=== PATIENT | male | born 1935 | race Caucasian/White ===

== ENCOUNTER 2017-09-08 06:18 | Emergency (ER) | payer MEDICARE, OTHER ==
[~2017-09-08] VITALS: Ht 162.6 cm; Wt 81.7 kg
[~2017-09-08 06:18] MED LIST: DONE10 PO
[2017-09-08 06:39] LABS: BASOPHILS ABSOLUTE AUTO 0.03 K/mm3 (0.00-0.23); BASOPHILS PERCENT AUTO 1 % (0-2); EOSINOPHILS ABSOLUTE AUTO 0.08 K/mm3 (0.00-0.68); EOSINOPHILS PERCENT AUTO 2 % (0-6); Hematocrit 42.2 % (37.0-53.0); Hemoglobin 14.5 g/dL (13.5-17.5); IMMATURE GRAN ABSOLUTE AUTO 0.01 K/mm3 (0.00-0.10); IMMATURE GRAN PERCENT AUTO 0 % (0-1); LYMPHOCYTES ABSOLUTE AUTO 1.74 K/mm3 (0.84-5.20); LYMPHOCYTES PERCENT AUTO 37 % (21-46); MONOCYTES ABSOLUTE AUTO 0.49 K/mm3 (0.16-1.47); MONOCYTES PERCENT AUTO 10 % (4-13); Mean Corpuscular HGB 31.5 pg (26.0-34.0); Mean Corpuscular HGB Conc 34.4 g/dL (31.5-36.5); Mean Corpuscular Volume 92 fL (80-100); Mean Platelet Volume 8.8 fL (9.1-12.4); NEUTROPHILS ABSOLUTE AUTO 2.34 K/mm3 (1.96-9.15); NEUTROPHILS PERCENT AUTO 50 % (41-73); Platelet Count 236 K/mm3 (150-400); RDW Coefficient Variation 12.3 % (11.7-14.2); Red Blood Cell Count 4.61 M/mm3 (4.30-5.90); White Blood Cell Count 4.69 K/mm3 (4.00-11.30)
[2017-09-08 06:57] LABS: Alanine Aminotransfer (ALT/SGP 13 U/L (12-78); Albumin, Blood 3.6 g/dL (3.4-5.0); Albumin/Globulin Ratio 0.9 (0.8-1.8); Alk Phos 68 U/L (50-136); Anion Gap 10 mmol/L (6-16); Aspartate Aminotrans (AST/SGOT 14 U/L (12-37); Blood Urea Nitrogen 14 mg/dL (8-24); Bun/Creatinine Ratio 15.4 (12.0-20.0); CO2, Blood 25 mmol/L (21-32); Chloride, Blood 105 mmol/L (98-108); Creatinine, Blood 0.91 mg/dL (0.60-1.20); Globulin, Blood 4.1 g/dL (2.2-4.0); Glomerular Filtration Rate >60 (60-); Glucose, Blood 99 mg/dL (70-99); Sodium, Blood 140 mmol/L (136-145); Total Protein, Blood 7.7 g/dL (6.4-8.2)
[2017-09-08 07:03] LABS: Source, Urine Voided
[2017-09-08 07:14] LABS: Bilirubin, Urine Neg (Neg); Blood, Urine Neg (Neg); Glucose Qualitative, Urine Neg (Neg); Ketones, Urine Neg (Neg); Leukocyte Esterase, Urine Neg (Neg); Nitrite, Urine Neg (Neg); Protein, Urine Neg (Neg); Urobilinogen, Urine NORM (Normal)
[2017-09-08 07:17] LABS: Appearance, Urine Clear (Clear); Color, Urine Yellow (P-Yellow)
== END 2017-09-08 08:13 | disposition home or self-care (01) ==
LOC: ER 06:18
PROVIDERS: Emergency Medicine
DX: R55 Syncope and collapse (principal); G30.9 Alzheimer's disease, unspecified; F02.80 Dementia in other diseases classified elsewhere, unspecified severity, without behavioral disturbance, psychotic disturbance, mood disturbance, and anxiety; Z79.899 Other long term (current) drug therapy; Z90.49 Acquired absence of other specified parts of digestive tract
CPT/HCPCS: 70450; 71046; 80053; 81003; 85025; 93005; 93010; 99284

== ENCOUNTER 2019-09-26 09:36 | Inpatient (IN) | payer MEDICARE, OTHER ==
[~2019-09-26] VITALS: Ht 165.1 cm; Wt 67.6 kg
[~2019-09-26 09:36] MED LIST changes: +ACET325 PO; +ALBU90OI INH; +CITA20 PO; +TRAZ100 PO
[2019-09-26] MEDS ORDERED: XANAX0.25 MG PO (09:54)
[2019-09-26 11:39] LABS: BASOPHILS PERCENT AUTO 0 % (0-2); EOSINOPHILS PERCENT AUTO 0 % (0-6); Hematocrit 41.9 % (37.0-53.0); IMMATURE GRAN ABSOLUTE AUTO 0.04 K/mm3 (0.00-0.10); IMMATURE GRAN PERCENT AUTO 1 % (0-1); LYMPHOCYTES ABSOLUTE AUTO 0.29 K/mm3 (0.84-5.20); LYMPHOCYTES PERCENT AUTO 4 % (21-46); MONOCYTES ABSOLUTE AUTO 0.36 K/mm3 (0.16-1.47); MONOCYTES PERCENT AUTO 4 % (4-13); Mean Corpuscular HGB 31.5 pg (26.0-34.0); Mean Corpuscular HGB Conc 33.4 g/dL (31.5-36.5); Mean Corpuscular Volume 94 fL (80-100); Mean Platelet Volume 9.2 fL (9.1-12.4); NEUTROPHILS ABSOLUTE AUTO 7.58 K/mm3 (1.96-9.15); NEUTROPHILS PERCENT AUTO 92 % (41-73); Platelet Count 296 K/mm3 (150-400); RDW Coefficient Variation 12.5 % (11.7-14.2); RDW Standard Deviation 43.1 fL (35.1-46.3); Red Blood Cell Count 4.45 M/mm3 (4.30-5.90); White Blood Cell Count 8.27 K/mm3 (4.00-11.30)
[2019-09-26 11:57] LABS: Alanine Aminotransfer (ALT/SGP 26 U/L (12-78); Albumin, Blood 3.5 g/dL (3.4-5.0); Albumin/Globulin Ratio 0.8 (0.8-1.8); Alk Phos 66 U/L (50-136); Anion Gap 4 mmol/L (6-16); Aspartate Aminotrans (AST/SGOT 23 U/L (12-37); Bilirubin, Total 0.6 mg/dL (0.1-1.0); Blood Urea Nitrogen 26 mg/dL (8-24); Bun/Creatinine Ratio 29.3 (12.0-20.0); CO2, Blood 27 mmol/L (21-32); Calcium, Blood 9.2 mg/dL (8.5-10.1); Chloride, Blood 105 mmol/L (98-108); Creatinine, Blood 0.89 mg/dL (0.60-1.20); Globulin, Blood 4.4 g/dL (2.2-4.0); Glomerular Filtration Rate >60 (60-); Glucose, Blood 198 mg/dL (70-99); Potassium, Blood 3.4 mmol/L (3.5-5.5); Sodium, Blood 136 mmol/L (136-145); Total Protein, Blood 7.9 g/dL (6.4-8.2)
[2019-09-26] MEDS ORDERED: ALPR.25 PO (17:19)
--- NOTE | 2019-09-26 19:38 | NUR ---
SHIFT SUMMARY 1705 RECEIVED PT TO 301 VIA GURNEY FROM ER. SLIDE TX TO BED. RECEIVED REPORT FROM LIDIA REYES. PT ADMITTED FOR SBO. NOT EATING OR DRINKING FOR PAST FEW DAYS. PER CARE GIVERS, PT'S LAST MEAL WAS FRIDAY NIGHT. LAST FLUID INTAKE WAS FRIDAY AM. PER CARE GIVERS FROM [facility], PT VOMITING AND HAD DIARRHEA, THINKING HE HAD THE FLU. PER REPORT, PT MOSTLY NONVERBAL AND BECOMES VERY AGITATED WITH TURNING OR CHANGING. PT INCONTINENT COMING TO . PT CLEANED AND CHANGED WITH 4P ASSIST D/T AGITATION AND DEMENTIA. PER REPORT, PT FOUND TO HAVE SBO. NGT TO BE PLACED. CAREGIVERS REPORTED THAT PT WOULD NOT BE CO-OP WITH THAT AND WOULD PULL IT OUT, ALONG WITH IV ACCESS. IV SITE INFUSING NS WITH KCL. SITE WRAPPED WITH COBAN AND NETTING PLACED TO CONCEAL SITE. DISCUSSED AGITATION ISSUE WITH DR MEDEIROS. NEW ORDERS RECEIVED. FAMILY AND CAREGIVERS UPDATED. PT TO BE TX TO SCU WHEN BED AVAILABLE. PT MEDICATED WITH 12.5 MCG OF FENTANYL PER CAREGIVERS, FOR JERKY MUSCLE MOVEMENTS AND GRIMACING. PT LYING HF, RESTING QUIETLY AT THIS TIME. REPORT GIVEN TO RORO REYES.
--- NOTE | 2019-09-26 20:55 | NUR ---
PT MOVED/EMESIS PT STARTED HAVING EMESIS @2029, ZOFRAN WAS GIVEN @2139 & PT MOVED FROM 301 TO 348 @2044. CALLED EULOGIO GOMEZ @2054 & INFORMED HER OF MOVE. GAVE REPORT TO DONIS VALLADARES RN.
[2019-09-27 02:24] LABS: Source, Urine Catheter
[2019-09-27 02:31] LABS: Appearance, Urine Clear (Clear); Bilirubin, Urine Neg (Neg); Blood, Urine 3+ (Neg); Color, Urine Amber (P-Yellow); Glucose Qualitative, Urine Neg (Neg); Ketones, Urine 1+ (Neg); Leukocyte Esterase, Urine 1+ (Neg); Nitrite, Urine Neg (Neg); Protein, Urine 3+ (Neg); Specific Gravity, Urine 1.025 (1.003-1.022); Urobilinogen, Urine NORM (Normal)
[2019-09-27 02:37] LABS: Bacteria Many /hpf; Mucus Heavy (0-Heavy); Red Blood Cells, Urine 0-2 /hpf (0-2); Squamous Epithelial Cells Not Seen /hpf (Few); White Blood Cells, Urine 25-50 /hpf (0-5)
[2019-09-27 05:27] LABS: BASOPHILS ABSOLUTE AUTO 0.02 K/mm3 (0.00-0.23); BASOPHILS PERCENT AUTO 0 % (0-2); EOSINOPHILS PERCENT AUTO 0 % (0-6); Hematocrit 38.4 % (37.0-53.0); Hemoglobin 12.5 g/dL (13.5-17.5); IMMATURE GRAN ABSOLUTE AUTO 0.05 K/mm3 (0.00-0.10); IMMATURE GRAN PERCENT AUTO 1 % (0-1); LYMPHOCYTES ABSOLUTE AUTO 0.72 K/mm3 (0.84-5.20); LYMPHOCYTES PERCENT AUTO 7 % (21-46); MONOCYTES ABSOLUTE AUTO 1.04 K/mm3 (0.16-1.47); MONOCYTES PERCENT AUTO 10 % (4-13); Mean Corpuscular HGB 31.8 pg (26.0-34.0); Mean Corpuscular HGB Conc 32.6 g/dL (31.5-36.5); NEUTROPHILS ABSOLUTE AUTO 9.13 K/mm3 (1.96-9.15); NEUTROPHILS PERCENT AUTO 83 % (41-73); Platelet Count 257 K/mm3 (150-400); RDW Coefficient Variation 12.9 % (11.7-14.2); RDW Standard Deviation 46.2 fL (35.1-46.3); Red Blood Cell Count 3.93 M/mm3 (4.30-5.90); White Blood Cell Count 10.96 K/mm3 (4.00-11.30)
[2019-09-27 05:28] LABS: Mean Corpuscular Volume 98 fL (80-100)
--- NOTE | 2019-09-27 05:28 | NUR ---
NOC SHIFT SUMMARY PT BROUGHT TO ROOM AROUND 2030 THIS NIGHT. HE WAS VERY AGITATED, HAD JUST VOMITED, WAS PULLING ON LINES, AND CONFUSED. TREATED WITH ATIVAN PER EMAR, PLACED IN RESTRAINTS FOR HIS OWN SAFETY AND TO PROTECT LINES. NG TUBE PLACED AND THUS FAR HAVE OBTAINED APPROX 2000ML OF GREEN COLORED BILE. PT APPEARED MORE COMFORTABLE AFTER STOMACH DECOMPRESSED. OBTAINED ORDER FOR GERARDO AND PLACED. PT IS ON CONT PULSE OXIMETRY SATTING MID 90'S ON 1LNC. NS WITH K RUNNING AT 150/HR. PT IS NPO. NEXT OF KIN EULOGIO CALLED TO CHECK UP ON PT STATUS I SPOKE WITH HER AND SHE RELATES SHE PLANS TO VISIT TODAY AFTER AROUND 1530. SURG CONSULT CALLED TO ANSWERING SERVICE. VSS. AT PRESENT PT APPEARS TO BE SLEEPING AND IN NO ACUTE DISTRESS. WILL CONTINUE TO MONITOR.
[2019-09-27 05:51] LABS: Magnesium, Blood 1.8 mg/dL (1.6-2.4)
[2019-09-27 06:00] LABS: Alanine Aminotransfer (ALT/SGP 17 U/L (12-78); Albumin, Blood 2.9 g/dL (3.4-5.0); Albumin/Globulin Ratio 0.8 (0.8-1.8); Alk Phos 50 U/L (50-136); Anion Gap 6 mmol/L (6-16); Aspartate Aminotrans (AST/SGOT 23 U/L (12-37); Bilirubin, Total 0.7 mg/dL (0.1-1.0); Blood Urea Nitrogen 26 mg/dL (8-24); Bun/Creatinine Ratio 26.1 (12.0-20.0); CO2, Blood 28 mmol/L (21-32); Calcium, Blood 8.7 mg/dL (8.5-10.1); Chloride, Blood 112 mmol/L (98-108); Globulin, Blood 3.7 g/dL (2.2-4.0); Glomerular Filtration Rate >60 (60-); Glucose, Blood 121 mg/dL (70-99); Potassium, Blood 4.3 mmol/L (3.5-5.5); Sodium, Blood 146 mmol/L (136-145); Total Protein, Blood 6.6 g/dL (6.4-8.2)
--- NOTE | 2019-09-27 14:16 | NUR ---
Patient gave student nurse permission to provide care on 09/27/19.
--- NOTE | 2019-09-27 19:05 | NUR ---
SHIFT SUMMARY PT CONTINUES TO PUT OUT LARGE AMOUNTS OF GREEN FLUID THROUGH NG TUBE. THIS RN MEDICATED FOR PAIN AND AGITATION THIS EVENING AFTER PT HAD TO BE MOVED TO A DIFFERENT BED. PT IS IN WRIST RESTRAINTS DUE TO PULLING AT LINES AND TRYING TO PULL OUT NG TUBE WHEN NOT IN RESTRAINTS. GERARDO PATENT AND DRAINING. NO ACUTE CHANGES THIS SHIFT. FAMILY IN TO SEE PT THIS EVENING. PLANS TO CONTINUE THE NG TUBE. REPORT GIVEN TO KISHAN REYES.
--- NOTE | 2019-09-28 05:21 | NUR ---
SHIFT SUMMARY- PT. AGITATED ON/OFF T/O THE SHIFT W/OCCASIONAL TREMORS. MEDICATED WITH ATIVAN PER EMAR, PT. TOLERATED WELL. PT. HAS ON SOFT WRIST RESTRAINTS PER ORDER FOR SAFETY. NGT IN PLACE TO INTERMITTANT SUCTION AND GERARDO CATHETER DRAINING WELL. PT. NPO, IV FLUIDS INFUSING. RESTING QUIETLY IN BED, NO APPARENT DISTRESS NOTED. CALL LIGHT WITHIN REACH, SIDE RAILS UP X2, AND BED ALARM ON. WILL CONT TO MONITOR.
[2019-09-28 08:06] LABS: Anion Gap 7 mmol/L (6-16); Blood Urea Nitrogen 21 mg/dL (8-24); Bun/Creatinine Ratio 22.2 (12.0-20.0); CO2, Blood 24 mmol/L (21-32); Chloride, Blood 117 mmol/L (98-108); Creatinine, Blood 0.95 mg/dL (0.60-1.20); Glomerular Filtration Rate >60 (60-); Glucose, Blood 113 mg/dL (70-99); Potassium, Blood 3.9 mmol/L (3.5-5.5); Sodium, Blood 148 mmol/L (136-145)
--- NOTE | 2019-09-28 13:05 | NUR ---
PT WITH SBFT XRAY IN PROCESS WITH NGT CLAMPED. PT BECAME PAINFUL WITH SOME EMESIS. SPOKE WITH KYAW IN IMAGING WHO REPORTS GO AHEAD AND HOOK PT BACK UP TO SUCTION AT THIS TIME. AN IMMEDIATE 850ML REMOVED AT THIS TIME. NGT TO LOW INTERMITTENT SUCTION.
--- NOTE | 2019-09-28 16:21 | NUR ---
DR MONET IN TO SEE PT AND TO DISCUSS WITH FAMILY REGARDING PLAN. PLAN IS FOR SURGERY TOMORROW, CONSENT SIGNED AND IN CHART. PER FAMILY ONCE DR MONET LEFT THEY HAVE DECIDED THEY DO WANT THE SURGERY AT THIS TIME.
--- NOTE | 2019-09-28 16:52 | NUR ---
SHIFT SUMMARY- PT A/O TO SELF ONLY. PT WITH GARBLED SPEECH. LS CLEAR/ DIMINISHED, ON RA. HRR. PT WITH NGT TO LOW INTERMITENT SUCTION WITH 2050ML THIS SHIFT OF GREEN BILE. SBFT XRAY COMPLETED TODAY. PT ENDED UP REQUIRING ZOFRAN AND FENTNAYL WHILE NGT WAS CLAMPED FOR XRAY AND WAS EVENTUALLY HOOKED BACK UP TO SUCTION. ABD NONTENDER WITH PALPATION AND SOFT. NO BM'S OR NOTED PASSING GAS THIS SHIFT. PLAN IS FOR SURGERY TOMORROW WITH DR MONET FOR SBO, FAMILY IN T/O THE DAY AND HAVE AGREED ON SURGERY. BEDBATH COMPLETED, PT AGITATED AT TIMES AND STIFFENS AND RESISTS WITH REPOSITIONING, WRIST RESTRAINTS IN PLACE TO PROTECT IV LINE AND NGT, PT CONT TO TRY TO GET TO NGT EVEN WITH RESTRAINTS ON. TREMORS NOTED. GERARDO PATENT AND DRAINING. NO OTHER ACUTE CHANGES THIS SHIFT.
[2019-09-28 22:27] LABS: BASOPHILS ABSOLUTE AUTO 0.02 K/mm3 (0.00-0.23); BASOPHILS PERCENT AUTO 0 % (0-2); EOSINOPHILS PERCENT AUTO 0 % (0-6); Hematocrit 35.3 % (37.0-53.0); Hemoglobin 11.4 g/dL (13.5-17.5); IMMATURE GRAN ABSOLUTE AUTO 0.04 K/mm3 (0.00-0.10); IMMATURE GRAN PERCENT AUTO 0 % (0-1); LYMPHOCYTES PERCENT AUTO 10 % (21-46); MONOCYTES ABSOLUTE AUTO 0.75 K/mm3 (0.16-1.47); MONOCYTES PERCENT AUTO 8 % (4-13); Mean Corpuscular HGB 32.2 pg (26.0-34.0); Mean Corpuscular HGB Conc 32.3 g/dL (31.5-36.5); Mean Corpuscular Volume 100 fL (80-100); Mean Platelet Volume 9.2 fL (9.1-12.4); NEUTROPHILS PERCENT AUTO 81 % (41-73); Platelet Count 216 K/mm3 (150-400); RDW Coefficient Variation 12.6 % (11.7-14.2); RDW Standard Deviation 46.2 fL (35.1-46.3); Red Blood Cell Count 3.54 M/mm3 (4.30-5.90); White Blood Cell Count 9.01 K/mm3 (4.00-11.30)
--- NOTE | 2019-09-29 05:38 | NUR ---
SHIFT SUMMARY- PT. AGITATED AT TIMES T/O THE SHIFT AND VERBALIZED BEING PAINFUL. MEDICATED PER EMAR. PT. APPEARS TO HAVE MINIMAL RELIEF. PT. NGT AT INTERMITTENT SUCTION WITH AN OUTPUT OF 500ML OF GREEN BILE THIS SHIFT. PT. NOTED TO HAVE TEMP OF 101.4 LAST NIGHT. NOTIFIED ROS FORREST PEAT SHREDDER TENDER. NEW ORDERS PUT IN. PT. GIVEN TYLENOL SUPP DUE TO PT. BEING NPO. TEMP AND OTHER VSS. SOFT WRIST RETRAINTS IN PLACE FOR SAFETY. PT. SCHEDULED FOR SURGERY THIS AM. CALL LIGHT WITHIN REACH AND SIDE RAILS UP X3. WILL CONT TO MONITOR.
[2019-09-29 09:04] LABS: Anion Gap 7 mmol/L (6-16); Blood Urea Nitrogen 20 mg/dL (8-24); Bun/Creatinine Ratio 19.2 (12.0-20.0); CO2, Blood 25 mmol/L (21-32); Chloride, Blood 119 mmol/L (98-108); Creatinine, Blood 1.04 mg/dL (0.60-1.20); Glomerular Filtration Rate >60 (60-); Glucose, Blood 121 mg/dL (70-99); Magnesium, Blood 1.7 mg/dL (1.6-2.4); Sodium, Blood 151 mmol/L (136-145)
--- NOTE | 2019-09-29 09:50 | NUR ---
PT. TRANSFERRED TO SURGERY VIA BED. TO BE TRANSFERRED TO PCU AFTER SURGERY. PT. WAS IN SVT AT 0737 THIS MORNING, DR. RAMOS NOTIFIED, TELE ORDERED WELL A TELEMETRY. DR. ANDREWS NOTIFIED OF WHAT WAS HAPPENING WITH PT. TELE ORDERED AND AT 0836 PT. REVERTED TO SR @ [address] GRETA FIGUEROA NOTIFIED OF CHANGE AND THEY CAME AND GOT PT. .
--- NOTE | 2019-09-29 10:50 | NUR ---
History, Chart, Medications and Allergies reviewed before start of procedure. THE PATIENT WAS BROUGHT DOWN FROM THE SPECIAL NEEDS UNIT FOR SURGERY WITH HIS POA.
--- NOTE | 2019-09-29 13:50 | NUR ---
ASSUMED PATIENT CARE. SCANT DRAINAGE NOTED THROUGH SURGICAL DRESSING. BOWEL SOUNDS HYPOACTIVE IN ALL QUADRANTS. NG SUCTION SET TO LOW INTERMITTENT PER ORDERSE. PATIENT IS RESTING IN BED, NO SIGNS OF ACUTE DISTRESS. WCTM.
--- NOTE | 2019-09-29 15:30 | NUR ---
RESTRAINTS: PT ARRIVED FROM OR WITHOUT RESTRAINTS IN PLACE. FAMILY STATES THAT WHEN PT WAKES HE WILL PULL AT LINES AND CORDS AND REQUEST RESTRAINTS TO BE REPLACED. GIVEN HISTORY, PLACING RESTRAINTS AND WILL MONITOR FURTHER PT BECOMES MORE ROUSEABLE.
--- NOTE | 2019-09-29 19:26 | NUR ---
RELINQUISHED PATIENT CARE. PATIENT ARRIVED FROM SURGERY, EXPLORATORY LAP WITH ADHESION REMOVAL. NG INTERMITTENT SUCTION SET TO LOW, MINIMAL OUTPUT NOTED. SON AND BIRDTER IN LAW WERE AT BEDSIDE THIS AFTERNOON. WRIST BILATERAL RESTRAINTS REAPPLIED PER FAMILY REQUEST WHO ARE BOTH POA, ADDITIONALLY PATIENT HAD BEGUN TO REACH TO PULL AT NG TUBE. PATIENT ORIENTED TO SELF. SCANT DRAINAGE AT SURGICAL SITE, JUAN PABLO DRESSING IN PLACE.
--- NOTE | 2019-09-30 02:02 | NUR ---
UPDATE PT HAS HAD SEVERAL SUSTAINED RUNS OF SVT; HR 130-170; HAS BECOME MORE FREQUENT; PROVIDER NOTIFIED; NEW ORDERS GIVEN FOR STAT LABS AND CARDIZEM GTT; REFER TO EMAR; CALL LIGHT IN REACH; BED IN LOWEST POSITION; PT CURRENTLY RESTING EASILY;
[2019-09-30 02:20] LABS: BASOPHILS ABSOLUTE AUTO 0.01 K/mm3 (0.00-0.23); BASOPHILS PERCENT AUTO 0 % (0-2); EOSINOPHILS PERCENT AUTO 0 % (0-6); Hematocrit 38.5 % (37.0-53.0); Hemoglobin 12.3 g/dL (13.5-17.5); IMMATURE GRAN ABSOLUTE AUTO 0.05 K/mm3 (0.00-0.10); IMMATURE GRAN PERCENT AUTO 0 % (0-1); LYMPHOCYTES ABSOLUTE AUTO 1.13 K/mm3 (0.84-5.20); LYMPHOCYTES PERCENT AUTO 10 % (21-46); MONOCYTES ABSOLUTE AUTO 0.71 K/mm3 (0.16-1.47); MONOCYTES PERCENT AUTO 6 % (4-13); Mean Corpuscular HGB 31.9 pg (26.0-34.0); Mean Corpuscular HGB Conc 31.9 g/dL (31.5-36.5); Mean Corpuscular Volume 100 fL (80-100); Mean Platelet Volume 9.3 fL (9.1-12.4); NEUTROPHILS ABSOLUTE AUTO 10.03 K/mm3 (1.96-9.15); NEUTROPHILS PERCENT AUTO 84 % (41-73); Platelet Count 241 K/mm3 (150-400); RDW Coefficient Variation 12.8 % (11.7-14.2); Red Blood Cell Count 3.86 M/mm3 (4.30-5.90); White Blood Cell Count 11.93 K/mm3 (4.00-11.30)
[2019-09-30 02:36] LABS: Albumin, Blood 2.5 g/dL (3.4-5.0); Anion Gap 5 mmol/L (6-16); Blood Urea Nitrogen 20 mg/dL (8-24); Bun/Creatinine Ratio 17.2 (12.0-20.0); CO2, Blood 28 mmol/L (21-32); Chloride, Blood 117 mmol/L (98-108); Creatinine, Blood 1.16 mg/dL (0.60-1.20); Glomerular Filtration Rate >60 (60-); Glucose, Blood 138 mg/dL (70-99); Magnesium, Blood 1.6 mg/dL (1.6-2.4); Phosphorus, Blood 3.7 mg/dL (2.5-4.9); Potassium, Blood 3.7 mmol/L (3.5-5.5); Sodium, Blood 150 mmol/L (136-145)
--- NOTE | 2019-09-30 03:30 | NUR ---
UPDATE HR IMPROVED FOR 45 MINUTES AFTER CARDIZEM PUSH; HR INCREASED AND SUSTAINED SVT IN 170'S; PROVIDER NOTIFIED; NEW ORDER FOR CARDIZEM GTT AND CARDIOLOGY CONSULT GIVEN; WILL MONITOR CLOSELY
--- NOTE | 2019-09-30 07:47 | NUR ---
SHIFT SUMMARY PT ALERT & MUMMBLING INCOHERRENTLY; TREMOR NOTED ON R SIDE; NG TUBE IN PLACE W/ INTERMITENT SUCTION; MININMAL OUTPUT NOTED; GERARDO DRAINING JAMA URINE; CARDIZEM GTT @ 10 INFUSING; HR IN 100'S NOTED ON TELE MONITOR; ROM PROVIDED TO STRETCH UPPER EXTREMITIES; O2 SATS >93 ON 2L NC; CALL LIGHT IN REACH; BED IN LOWEST POSITION; REPORT GIVEN TO DAY SHIFT RN.
--- NOTE | 2019-09-30 07:48 | NUR ---
AM NOTE... ASSUMED CARE OF PT APROX 0700, PT IS S/P SBO SURGERY ON 09/29, PT IS CURRENTLY IN SR-ST W/PAC'S AND PVC'S IN THE 80'S-100'S, PT IS ON CARDIZEM GTT AT 10ML/HR VS STABLE AT THIS TIME. PT HAS DEMENTIA AT BASELINE AND IS UNABLE TO ANSWER ANY QUESTIONS, PT IS A&Ox1. PT'S ABD DRESSING AND PICCO DRAIN ARE C/D/I ABD BINDER IS IN PLACE, BT PRESENT IN ALL QUADRANTS AND HYPOACTIVE. TRACE EDEMA IS NOTED TO THE PT'S BLE, SCDS IN PLACE. CALL LIGHT IN REACH, FAMILY AT THE BEDSIDE WILL CONTINUE TO MONITOR.
--- NOTE | 2019-09-30 08:48 | NUR ---
09/30/19 0848 Magnolia Garcia VERIFICATIONS: EDIT CHART.
[2019-09-30 09:00] LABS: Anion Gap 4 mmol/L (6-16); Blood Urea Nitrogen 19 mg/dL (8-24); Bun/Creatinine Ratio 21.7 (12.0-20.0); CO2, Blood 26 mmol/L (21-32); Calcium, Blood 7.8 mg/dL (8.5-10.1); Chloride, Blood 117 mmol/L (98-108); Creatinine, Blood 0.88 mg/dL (0.60-1.20); Glomerular Filtration Rate >60 (60-); Glucose, Blood 136 mg/dL (70-99); Potassium, Blood 3.3 mmol/L (3.5-5.5); Sodium, Blood 147 mmol/L (136-145)
--- NOTE | 2019-09-30 18:41 | NUR ---
SHIFT SUMMARY.... NO ACUTE NEGATIVE CHANGES NOTED THIS SHIFT. PT'S VS HAVE BEEN STABLE. PT HAS BEEN FLIPPING IN AND OUT OF AFIB W/RVR SEVERAL TIMES TODAY. CURRENTLY PT IS IN SR/ST W/PACS AND PVCS. PT'S GERARDO WAS REMOVED PER VERBAL REQUEST BY DR. MONET, PT HAS VOIDED SINCE GERARDO D/C. PT'S FAMILY AT THE BEDSIDE T/O SHIFT. ABD BINDER WAS CHANGED, DRESSINGS ARE C/D/I, BED BATH WAS GIVEN. PT HAS BEEN MEDICATED PER EMAR WITH GOOD RESULTS. CALL LIGHT IN REACH, WILL CONTINUE TO MONITOR UNTIL REPORT IS GIVEN TO ONCOMING RN.
--- NOTE | 2019-10-01 05:10 | NUR ---
SHIFT SUMMARY PT ALERT, MUMBLES INCOMPREHENSIBLY. ESAU PT ORIENTATION. PT QUIET, SLEEPING MOST OF SHIFT, MEDICATED FOR PAIN X1 THIS SHIFT AFTER PT MOANING IN ROOM. ABD MIDLINE DRESSING & DRAIN IN TACT W/ ABD BINDER IN PLACE WELL. MONITOR SHOWS AFIB W/ HR 80-110's W/ TOUCH UPS TO 160's-170's. CARDIZEM GTT REINITIATED THIS SHIFT W/ CARDIZEM @ 5 MLS/HR AT THIS TIME. SPO2 > 92% ON 2.5 L NC TITRATED TO 1L NC THIS SHIFT. FREQUENT ORAL CARE PERFORMED D/T PT MOUTH BREATHING. Q2H REPOSITIONING AND PRN ATTENDS CHANGES BY 2 STAFF. NGT W/ INTERMITTENT SUCTION. BILAT SWR IN PLACE FOR PROTECTION OF LINES. WILL CONTIUE TO MONITOR AND PROVIDE CARE.
--- NOTE | 2019-10-01 08:29 | NUR ---
AM NOTE... ASSUMED CARE OF PT APROX 0700. PT IS A&Ox4 AND ON BEDREST, PER REPORT PT HAS PULLED HIS NG TUBE, CALLED SURGICAL PROVIDER AND HE SAID NO TO REPLACE THE NG TUBE AT THIS TIME. BT PRESENT AND HYPOACTIVE, ABD IS FIRM AND TENDER TO PALP DRESSING IS C/D/I WITH DIME SIZE DRY BLOOD THAT WAS PRESENT SINCE YESTERDAY. PT'S VS STABLE AT THIS TIME, PT IS STILL ON CARDIZEM GTT AT 5MG/HR. PT IS MORE AWAKE AND ALERT, AND HAPPY TO SEE STAFF. FAMILY AT THE BEDSIDE. CALL LIGHT IN REACH WILL CONTINUE TO MONITOR.
[2019-10-01 11:08] LABS: BASOPHILS ABSOLUTE AUTO 0.01 K/mm3 (0.00-0.23); BASOPHILS PERCENT AUTO 0 % (0-2); EOSINOPHILS ABSOLUTE AUTO 0.02 K/mm3 (0.00-0.68); EOSINOPHILS PERCENT AUTO 0 % (0-6); Hematocrit 30.2 % (37.0-53.0); Hemoglobin 9.7 g/dL (13.5-17.5); IMMATURE GRAN ABSOLUTE AUTO 0.06 K/mm3 (0.00-0.10); IMMATURE GRAN PERCENT AUTO 1 % (0-1); LYMPHOCYTES ABSOLUTE AUTO 1.02 K/mm3 (0.84-5.20); LYMPHOCYTES PERCENT AUTO 11 % (21-46); MONOCYTES ABSOLUTE AUTO 0.56 K/mm3 (0.16-1.47); MONOCYTES PERCENT AUTO 6 % (4-13); Mean Corpuscular HGB 31.8 pg (26.0-34.0); Mean Corpuscular HGB Conc 32.1 g/dL (31.5-36.5); Mean Corpuscular Volume 99 fL (80-100); Mean Platelet Volume 9.6 fL (9.1-12.4); NEUTROPHILS ABSOLUTE AUTO 7.51 K/mm3 (1.96-9.15); NEUTROPHILS PERCENT AUTO 82 % (41-73); Platelet Count 201 K/mm3 (150-400); RDW Coefficient Variation 12.8 % (11.7-14.2); RDW Standard Deviation 46.3 fL (35.1-46.3); Red Blood Cell Count 3.05 M/mm3 (4.30-5.90); White Blood Cell Count 9.18 K/mm3 (4.00-11.30)
--- NOTE | 2019-10-01 12:16 | NUR ---
Pt converted to normal sinus rhythm rate 66 bpm. cardizem off at this time.
--- NOTE | 2019-10-01 18:19 | NUR ---
SHIFT SUMMARY... NO ACUTE NEGATIVE CHANGES NOTED THIS SHIFT. PT'S VS HAVE BEEN STABLE. PT HAS BEEN TITRATED TO RA FROM 2L NC. PT HAS NOT HAD A BM THIS SHIFT. PT HAS HAD FAMILY AT THE BEDSIDE MOST OF THIS SHIFT. WRIST RESTRAINTS WERE REMOVED ARPOX 1500 TODAY, PT HAS NOT BEEN TRYING TO PULL ON ANY LINES OR CORDS FOR THE REST OF THE SHIFT. PT HAS BEEN MEDICATED FOR PAIN PER EMAR. ABD DRESSING IS C/D/I WITH NO CHANGES TO THE DRY BLOOD SPOT. CALL LIGHT IN REACH, BED ALARM IS ON WILL CONTINUE TO MONITOR UNTIL REPORT IS GIVEN TO ONCOMING RN.
[2019-10-02 05:34] LABS: BASOPHILS ABSOLUTE AUTO 0.01 K/mm3 (0.00-0.23); BASOPHILS PERCENT AUTO 0 % (0-2); EOSINOPHILS ABSOLUTE AUTO 0.13 K/mm3 (0.00-0.68); EOSINOPHILS PERCENT AUTO 2 % (0-6); Hematocrit 32.5 % (37.0-53.0); Hemoglobin 10.3 g/dL (13.5-17.5); IMMATURE GRAN ABSOLUTE AUTO 0.05 K/mm3 (0.00-0.10); IMMATURE GRAN PERCENT AUTO 1 % (0-1); LYMPHOCYTES PERCENT AUTO 14 % (21-46); MONOCYTES ABSOLUTE AUTO 0.58 K/mm3 (0.16-1.47); MONOCYTES PERCENT AUTO 7 % (4-13); Mean Corpuscular HGB 31.3 pg (26.0-34.0); Mean Corpuscular HGB Conc 31.7 g/dL (31.5-36.5); Mean Corpuscular Volume 99 fL (80-100); NEUTROPHILS ABSOLUTE AUTO 5.99 K/mm3 (1.96-9.15); NEUTROPHILS PERCENT AUTO 76 % (41-73); Platelet Count 213 K/mm3 (150-400); RDW Coefficient Variation 12.5 % (11.7-14.2); RDW Standard Deviation 45.2 fL (35.1-46.3); Red Blood Cell Count 3.29 M/mm3 (4.30-5.90); White Blood Cell Count 7.86 K/mm3 (4.00-11.30)
[2019-10-02 05:57] LABS: Anion Gap 5 mmol/L (6-16); Blood Urea Nitrogen 23 mg/dL (8-24); Bun/Creatinine Ratio 32.2 (12.0-20.0); CO2, Blood 27 mmol/L (21-32); Calcium, Blood 7.8 mg/dL (8.5-10.1); Chloride, Blood 111 mmol/L (98-108); Creatinine, Blood 0.71 mg/dL (0.60-1.20); Glomerular Filtration Rate >60 (60-); Glucose, Blood 131 mg/dL (70-99); Magnesium, Blood 2.1 mg/dL (1.6-2.4); Potassium, Blood 4.1 mmol/L (3.5-5.5); Sodium, Blood 143 mmol/L (136-145)
--- NOTE | 2019-10-02 06:29 | NUR ---
SHIFT SUMMARY PT SLEEPING MAJORITY OF SHIFT, OPENS EYES TO VERBAL STIMULATION. PT SPEECH GARBLED & INCOMPREHENSIBLE, ESAU ORIENTATION. LUNG SOUNDS CLEAR. SPO2 > 92% ON RA. MONITOR SHOWS SR W/ PAC's. ABD MIDLINE DRESSING IN TACT W/ SMALL, DRIED BLOOD SPOT ASSESSED W/ DAY SHIFT RN UNCHANGED. JUAN PABLO DRAIN IN PLACE. ABD BINDER IN PLACE. PT MEDICATED FOR PAIN X1 THIS SHIFT D/T MOANING & RESTLESSNESS. CLINIMIX GTT INFUSING PER ORDERS. PT NPO, W/ OKAY FOR MEDS & ICE CHIPS. PT TOLERATING MEDS CRUSHED IN APPLESAUCE WELL. Q2H REPOSITIONING W/ PRN CANELO CARE/ATTENDS CHANGES PROVIDED BY 2 PERSON MOD/MAX ASSIST. WILL CONTINUE TO MONITOR AND PROVIDE CARE UNTIL REPORT OFF TO DAY SHIFT RN.
--- NOTE | 2019-10-02 08:07 | NUR ---
AM NOTE... PT HAD MED LOOSE BM THIS AM, BROWN, LIQUID. NO SKIN BREAKDOWN NOTED. PT'S VS STABLE AT THIS TIME HE IS IN NSR W/PACS AND PVCS IN THE 50'S-60'S. ABD DRESSING IS C/D/I WITH SMALL DRY AREA OF BLOOD THAT HAS NOT CHANGED. PT HAS BEEN OUT OF RESTRAINS SINCE YESTERDAY AFTERNOON AND HAS NOT ATTEMPTED TO PULL OUT HIS IV OR TELE. FAMILY AT THE BEDSIDE. CALL LIGHT IN REACH, BED ALARM ON WILL CONTINUE TO MONITOR.
--- NOTE | 2019-10-02 13:51 | NUR ---
ARRIVAL TO UNIT ARRIVAL TO UNIT AT APPROX 1320. PT PLEASANTLY CONFUSED. GARBLED SPEECH. CAN OCCASSIONALLY ANSWER QUESTIONS WITH YES OR NO. APPEARS COMFORTABLE AT THIS TIME. NO S/S DISTRESS. JUAN PABLO WOUND VAC TO ABD IS CDI WITH ABD BINDER IN PLACE. IV SL. ATTENDS ON AND CURRENTLY DRY. PT UNABLE TO SIP CLEAR LIQ THROUGH A STRAW OR BY RIM OF THE CUP. ATTEMPTED THROUGH A SIPPY CUP AND PT ABLE TO DRINK. ENCOURAGING FLUID INTAKE FREQUENTLY. BED ALRM IN PLACE FOR SAFETY.
--- NOTE | 2019-10-02 16:13 | NUR ---
SHIFT SUMMARY PT AND VERY ANXIOUS ABOUT TREATMENT PLAN AT START OF SHIFT. NEEDING A LOT OF DIABETIC EDUCATION. THIS RN PROVIDED PRINTED HANDOUTS. DIETARY CONSULT OCCURRED TODAY AND PT AND EXPRESS THAT IT WAS VERY HELPFUL AND THAT THEY FEEL MORE COMFORTABLE ABOUT DX AND DIET PLAN. PLANNING ON TEACHING PT HOW TO ADMINISTER INSULIN. PT IS INDEP IN ROOM AND WAS UP IN CHAIR TODAY. PT DOES SELF CATH. TELE IN PLACE. IVF INFUSING PER ORDERS. CALL LIGHT WITHIN REACH.
--- NOTE | 2019-10-02 16:18 | NUR ---
SHIFT SUMMARY NO ACUTE CHANGES SINCE ARRIVAL TO UNIT. PT DOES HAVE SOME FACIAL GRIMACING WHILE COUGHING AND REPOSITIONING. MEDICATED WITH 0.25MG IV DILAUDID FOR PAIN. FAMILY MEMBER AT BEDSIDE FOR SUPPORT. ENCOURAGING PO INTAKE. BED ALARM IN PLACE FOR SAFETY.
[2019-10-03 05:49] LABS: Anion Gap 5 mmol/L (6-16); Blood Urea Nitrogen 19 mg/dL (8-24); Bun/Creatinine Ratio 22.1 (12.0-20.0); CO2, Blood 27 mmol/L (21-32); Calcium, Blood 7.9 mg/dL (8.5-10.1); Chloride, Blood 111 mmol/L (98-108); Creatinine, Blood 0.86 mg/dL (0.60-1.20); Glomerular Filtration Rate >60 (60-); Glucose, Blood 109 mg/dL (70-99); Magnesium, Blood 1.9 mg/dL (1.6-2.4); Potassium, Blood 3.9 mmol/L (3.5-5.5); Sodium, Blood 143 mmol/L (136-145)
--- NOTE | 2019-10-03 06:34 | NUR ---
PATIENT HAS MOMENTS WHERE HE IS ABLE TO SPEAK A FEW WORDS COHERENTLY, MOSTLY HIS COMMUNICATION IS INCOHERENT, AND MASHED TOGETHER. HE HAS BEEN INCONTINENT OF URINE AND STOOL. HE HAS VERY STRONG SMELLING STOOL THAT IS NOW MORE BROWN THAT GREEN/YELLOW. HIS BINDER WAS REPLACED THIS AM, PARTIAL BATH. PATIENT IS VERY DIFFICULT TO TURN LEFT TO RIGHT, HE IS UNABLE TO HELP WITH TURNS OR ANY CARE. HIS JUAN PABLO DRAIN IS STILL COMPRESSED WITH NO CHANGE IN THE DRAINAGE IN OR ON THE MIDABDINAL DRESSING.
--- NOTE | 2019-10-03 18:57 | NUR ---
SUMMARY DELORES PO FOOD AND FLUIDS, PT NEEDS ASSIST AND ENCOURAGEMENT TO EAT. FAMILY AND [facility] PROVIDERS IN TO VISIT AND VERY ATTENTIVE TO PATIENT. PATIENT HAD 5 LARGE LIQUID YELLOW/GODWIN STOOLS THIS SHIFT. SLIGHT REDNESS BUT NO AREAS OF BREAKDOWN TO SCROTAL AREA. BARRIER CREAM APPLIED WITH EACH ATTENDS CHANGE. ABD DRESSING DRY AND INTACT WITH JUAN PABLO IN PLACE. PATIENTS MOUTH REDENNED WITH SOME WHITE PATCHES- PHYSICIAN AWARE AND NEW ORDERS RECEIVED
--- NOTE | 2019-10-04 05:23 | NUR ---
SHIFT SUMMARY JUAN PABLO TO MIDLINE C/D/I. ABD BINDER IN PLACE. HAD ONE EPISODE OF N/V AT START OF SHIFT, MEDICATED ONCE PER EMAR. REFUSED PO INTAKE, ENCOURAGEMENT OFFERED. TURNED OFTEN T/O SHIFT. HAD 3 INCONT VOIDS, NO BM'S; ATTENDS CHANGED PRN. RESTED QUIETLY IN BED, APPEARED TO BE SLEEPING T/O NIGHT. IS CURRENTLY RESTING IN BED WITH CALL LIGHT IN REACH AND BED ALARM ON. WILL CONT MONITOR AND GIVE REPORT TO ONCOMING RN.
[2019-10-05 05:07] LABS: Anion Gap 2 mmol/L (6-16); Blood Urea Nitrogen 12 mg/dL (8-24); CO2, Blood 29 mmol/L (21-32); Calcium, Blood 7.8 mg/dL (8.5-10.1); Chloride, Blood 111 mmol/L (98-108); Creatinine, Blood 0.92 mg/dL (0.60-1.20); Glomerular Filtration Rate >60 (60-); Glucose, Blood 99 mg/dL (70-99); Potassium, Blood 3.5 mmol/L (3.5-5.5); Sodium, Blood 142 mmol/L (136-145)
--- NOTE | 2019-10-05 06:09 | NUR ---
SHIFT SUMMARY RESTING WITH EASE AT THIS TIME. RESPIRATIONS EVEN AND UNLABORED ON RA. HAS NOT C/O PAIN THIS SHIFT. INCONTINENT OF BOWEL AND BLADDER, WEARS DEPENDS. RIGHT FA PIV IS PATENT, FLUSIHING WITH EASE WHILE INFUSING LR AT 125ML/HR. DENIES FURTHER NEEDS OR WANTS AT THIS TIME. SAFETY MEASURES IN PLACE. WILL GIVE HAND OFF TO ONCOMING SHIFT USING SBAR.
[2019-10-05] MEDS ORDERED: GI COCKTAIL MT (13:27)
--- NOTE | 2019-10-05 14:52 | NUR ---
DISCHARGE PT D/C'D VIA [facility]. SCRIPTS FAXED TO PHARMACY OF CHOICE IN [place]. FAMILY AT BEDSIDE T/O DAY. UNDERSTANDS DISCHARGING BACK TO [facility]. PT TOLERATINF SOFT FOODS AND LIQUIDS, WITH FEEDER. ABD SOFT, NONTENDER. 2 BMS THIS SHIFT.
== END 2019-10-05 14:45 | disposition home or self-care (01) | DRG 336 ==
LOC: ER 09:36 → PCU 12:15 → MEDS 12:15 → ERHOLD 12:15 → MEDS 17:09 → PCU 09-29 11:51 → SURS 10-02 13:20
PROVIDERS: Emergency Medicine; Family Medicine; Internal Medicine; Nurse Practitioner Acute Care; Surgery; ADMIT Internal Medicine
PROC: 0WUF0JZ Supplement Abdominal Wall with Synthetic Substitute, Open Approach (ICD-10-PCS; principal; 2019-09-29 11:00)
PROC: 0DNU0ZZ Release Omentum, Open Approach (ICD-10-PCS; 2019-09-29 11:00)
DX: K56.609 Unspecified intestinal obstruction, unspecified as to partial versus complete obstruction (principal); I47.1 Supraventricular tachycardia; E87.0 Hyperosmolality and hypernatremia; G30.9 Alzheimer's disease, unspecified; F02.80 Dementia in other diseases classified elsewhere, unspecified severity, without behavioral disturbance, psychotic disturbance, mood disturbance, and anxiety; Z87.891 Personal history of nicotine dependence; E11.65 Type 2 diabetes mellitus with hyperglycemia; Z79.4 Long term (current) use of insulin; G47.00 Insomnia, unspecified
CPT/HCPCS: 36415; 71045; 74176; 74250; 80048; 80053; 80069; 81001; 82947; 83036; 83605; 83690; 83735; 85025; 87040; 87086; 87493; 93005; 93010; 93306; 94640; 94760; 94762; 96361; 96374; 96375; 99285-25; A9270; A9270-GY; C1781; J0780; J1170; J1650; J2060; J2405; J2543; J2704; J2710; J2765; J3010; J3475; J3480; J7030; J7120

== ENCOUNTER 2019-10-12 10:21 | Emergency (ER) | payer MEDICARE, OTHER ==
[~2019-10-12] VITALS: Ht 165.1 cm; Wt 68.0 kg
[~2019-10-12 10:21] MED LIST changes: +ALPR.25 PO; +GI COCKTAIL MT; +XANAX0.25 MG PO
[2019-10-12] MEDS ORDERED: Lopressor 50 mg50 MG PO (10:47)
[2019-10-12 11:15] LABS: BASOPHILS ABSOLUTE AUTO 0.05 K/mm3 (0.00-0.23); BASOPHILS PERCENT AUTO 1 % (0-2); EOSINOPHILS PERCENT AUTO 0 % (0-6); Hematocrit 31.2 % (37.0-53.0); Hemoglobin 10.3 g/dL (13.5-17.5); IMMATURE GRAN ABSOLUTE AUTO 0.07 K/mm3 (0.00-0.10); IMMATURE GRAN PERCENT AUTO 1 % (0-1); LYMPHOCYTES ABSOLUTE AUTO 0.43 K/mm3 (0.84-5.20); LYMPHOCYTES PERCENT AUTO 4 % (21-46); MONOCYTES ABSOLUTE AUTO 0.74 K/mm3 (0.16-1.47); MONOCYTES PERCENT AUTO 7 % (4-13); Mean Corpuscular HGB 31.5 pg (26.0-34.0); Mean Platelet Volume 9.1 fL (9.1-12.4); NEUTROPHILS ABSOLUTE AUTO 9.06 K/mm3 (1.96-9.15); NEUTROPHILS PERCENT AUTO 88 % (41-73); Platelet Count 400 K/mm3 (150-400); RDW Coefficient Variation 12.8 % (11.7-14.2); Red Blood Cell Count 3.27 M/mm3 (4.30-5.90); White Blood Cell Count 10.35 K/mm3 (4.00-11.30)
[2019-10-12 11:17] LABS: Mean Corpuscular Volume 95 fL (80-100)
[2019-10-12 11:27] LABS: Alanine Aminotransfer (ALT/SGP 22 U/L (12-78); Albumin, Blood 2.5 g/dL (3.4-5.0); Albumin/Globulin Ratio 0.6 (0.8-1.8); Alk Phos 55 U/L (50-136); Anion Gap 5 mmol/L (6-16); Aspartate Aminotrans (AST/SGOT 13 U/L (12-37); Bilirubin, Total 0.4 mg/dL (0.1-1.0); Blood Urea Nitrogen 14 mg/dL (8-24); CO2, Blood 26 mmol/L (21-32); Calcium, Blood 8.4 mg/dL (8.5-10.1); Chloride, Blood 109 mmol/L (98-108); Creatinine, Blood 0.88 mg/dL (0.60-1.20); Globulin, Blood 4.1 g/dL (2.2-4.0); Glomerular Filtration Rate >60 (60-); Glucose, Blood 179 mg/dL (70-99); Potassium, Blood 3.6 mmol/L (3.5-5.5); Sodium, Blood 140 mmol/L (136-145); Total Protein, Blood 6.6 g/dL (6.4-8.2)
[2019-10-12] MEDS ORDERED: GAVILAX17 GM PO (12:44)
[2019-10-12] MEDS ORDERED: Colace100 MG PO (12:44)
[2019-10-12] MEDS ORDERED: Fleet Enema132 ML PR (12:44)
== END 2019-10-12 14:21 | disposition home or self-care (01) ==
LOC: ER 10:21
PROVIDERS: Emergency Medicine
DX: K59.00 Constipation, unspecified (principal); G30.9 Alzheimer's disease, unspecified; F02.80 Dementia in other diseases classified elsewhere, unspecified severity, without behavioral disturbance, psychotic disturbance, mood disturbance, and anxiety; Z79.899 Other long term (current) drug therapy
CPT/HCPCS: 36415; 74022; 80053; 83690; 85025; 93005; 93010